=== PATIENT | female | born 1990 | race Caucasian/White ===

== ENCOUNTER → 2016-11-16 21:00 | Emergency (ER) | payer OTHER ==
[~2016-11-16 21:00] MED LIST: ACETAMINOPHEN PO; AMLODIPINE BESY10 MG PO; CATAPRES0.1 MG PO; CELLCEPT500 MG PO; CLONIDINE HCL0.1 MG PO; CYMBALTA PO; ESCITALOPRAM OX10 MG PO; GABAPENTIN300 M2 PO; KEFLEX500 MG PO; KEPPRA500 MG PO; LASIX20 MG PO; LEXAPRO20 MG PO; NICOTINE1 EAC1 TOP; NORVASC10 MG PO; PATIENT'S PHARMACY; PERCOCET5/325 PO; PLAQUENIL200 MG PO; PREDNISOLONE5 MG PO; PREDNISONE PO; PREDNISONE10 MG PO; VITAMIN D1000 UNI1 PO
== END | disposition left against medical advice (07) ==
LOC: CFTX 21:00
DX: R21 Rash and other nonspecific skin eruption (principal)
CPT/HCPCS: 99283

== ENCOUNTER 2017-01-18 19:13 | Emergency (ER) | payer OTHER ==
--- NOTE | ~2017-01-18 | EKG ---
PATIENT: AMADOR BONILLA UNIT #: [id number] Ventricular Rate: 89 BPM Atrial Rate: 89 BPM P-R Interval: 156 ms QRS Duration: 78 ms Q-T Interval: 372 ms QTC Calculation(Bezet): 452 ms P Dawn: 59 degrees Calculated R Dawn: 30 degrees Calculated T Dawn: 35 degrees Diagnosis Line: Normal sinus rhythm Diagnosis Line: Non Specific ST Changes- Abnormality Diagnosis Line: Borderline ECG Diagnosis Line: When compared with ECG of 20-NOV-2014 14:16, Diagnosis Line: Nonspecific T wave abnormality now evident in Diagnosis Line: Lateral leads Diagnosis Line: Confirmed by PARRISH FALCON MD ([id number]) on Diagnosis Line: 01/18/2017 11:01:38 PM INTERPRETING : ALYSSA
[~2017-01-18 19:13] MED LIST changes: -ACETAMINOPHEN PO; -AMLODIPINE BESY10 MG PO; -CATAPRES0.1 MG PO; -CLONIDINE HCL0.1 MG PO; -ESCITALOPRAM OX10 MG PO; -GABAPENTIN300 M2 PO; -KEFLEX500 MG PO; -LASIX20 MG PO; -LEXAPRO20 MG PO; -NICOTINE1 EAC1 TOP; -NORVASC10 MG PO; -PATIENT'S PHARMACY; -PERCOCET5/325 PO; -PREDNISOLONE5 MG PO; -VITAMIN D1000 UNI1 PO
[2017-01-18 20:32] LABS: BASOPHIL% 0.7 % (0-2.5); EOSINOPHIL# 0.2 X10e3 (0-0.7); EOSINOPHIL% 2.5 % (0.0-7.0); HEMATOCRIT 36.9 % (35.0-45.0); HEMOGLOBIN 11.9 gm/dL (12.0-16.0); LYMPHOCYTE# 1.3 X10e3 (1.0-3.5); LYMPHOCYTE% 19.4 % (17.0-45.0); MEAN CELL VOLUME 85.7 FL (83-96); MEAN CORPUSCULAR HEMOGLOBIN 27.7 PG (28-34); MEAN CORPUSCULAR HGB CONC 32.3 g/dL (30-36); MONOCYTE# 0.3 X10e3 (0-1.0); MONOCYTE% 5.2 % (3.0-12.0); NEUTROPHIL# 4.8 X10e3 (1.5-7.1); NEUTROPHIL% 72.2 % (40-75); PLATELET COUNT 302 X10e3 (140-420); RED BLOOD COUNT 4.31 X10e (3.90-5.30); RED CELL DISTRIBUTION WIDTH 14.1 % (11.0-15.5); WHITE BLOOD COUNT 6.7 X10e3 (4.0-10.5)
[2017-01-18 20:42] LABS: DIFF IND NO
[2017-01-18 20:57] LABS: ALBUMIN SERUM 3.9 g/dL (3.5-5.0); ALKALINE PHOSPHATASE 65 U/L (32-92); ALT (SGPT) 23 U/L (10-40); AST (SGOT) 25 U/L (10-42); BILIRUBIN,TOTAL 0.7 mg/dL (0.2-2.0); BLOOD UREA NITROGEN 49 mg/dL (9-23); BUN/CREATININE RATIO 9.24; CARBON DIOXIDE 24 mmol/L (22-31); CHLORIDE 107 mmol/L (100-111); CREATININE SERUM 5.3 mg/dL (0.6-1.4); GLOM FILT RATE Estimated 10.3 mL/min (>60); GLUCOSE FASTING 109 mg/dL (70-110); POTASSIUM 3.4 mmol/L (3.5-5.1); PROTEIN TOTAL SERUM 7.1 g/dL (6.0-8.3); SODIUM 141 mmol/L (135-145)
[2017-01-18 20:58] LABS: ALCOHOL BLOOD <5 mg/dL (0); BILIRUBIN, DIRECT <0.1 mg/dL (0.0-0.2); BILIRUBIN,INDIRECT 0.6 mg/dL (0.0-0.9)
[2017-01-18] MEDS ORDERED: PREDNISONE10 MG PO (22:08)
[2017-01-18] MEDS ORDERED: CELLCEPT500 MG PO (22:08)
[2017-01-18] MEDS ORDERED: ESCITALOPRAM OX10 MG PO (22:09)
[2017-01-18] MEDS ORDERED: GABAPENTIN300 M2 PO (22:09)
[2017-01-18] MEDS ORDERED: CLONIDINE HCL0.1 MG PO (22:09)
[2017-01-18] MEDS ORDERED: AMLODIPINE BESY10 MG PO (22:09)
[2017-01-18 23:28] LABS: AMPHETAMINE POS (NEG); BARBITURATES NEG (NEG); BENZODIAZEPINES NEG (NEG); COCAINE POS (NEG); MARIJUANA POS (NEG); OPIATES NEG (NEG); TRICYCLIC ANTIDEPRESSANTS NEG (NEG); U METHADONE NEG (NEG)
[2017-04-09] MEDS ORDERED: PATIENT'S PHARMACY (11:23)
[2017-04-09] MEDS ORDERED: CATAPRES0.1 MG PO (11:23)
[2017-04-09] MEDS ORDERED: NORVASC10 MG PO (11:23)
[2017-04-09] MEDS ORDERED: NICOTINE1 EAC1 TOP (11:24)
[2017-04-09] MEDS ORDERED: CELLCEPT500 MG PO (11:24)
[2017-04-09] MEDS ORDERED: VITAMIN D1000 UNI1 PO (11:24)
[2017-04-09] MEDS ORDERED: ACETAMINOPHEN PO (13:06)
[2017-04-09] MEDS ORDERED: PREDNISOLONE5 MG PO (13:06)
[2017-04-09] MEDS ORDERED: KEFLEX500 MG PO (13:09)
[2017-04-09] MEDS ORDERED: LEXAPRO20 MG PO (13:14)
[2017-04-10] MEDS ORDERED: PERCOCET5/325 PO (15:32)
== END 2017-01-19 01:16 ==
LOC: CED 19:13
PROVIDERS: Emergency Medicine
DX: F12.10 Cannabis abuse, uncomplicated (principal); F14.10 Cocaine abuse, uncomplicated; F15.10 Other stimulant abuse, uncomplicated; F32.9 Major depressive disorder, single episode, unspecified; I12.9 Hypertensive chronic kidney disease with stage 1 through stage 4 chronic kidney disease, or unspecified chronic kidney disease; N18.9 Chronic kidney disease, unspecified; F17.200 Nicotine dependence, unspecified, uncomplicated; Z88.8 Allergy status to other drugs, medicaments and biological substances
CPT/HCPCS: 36415; 80048; 80076; 80307; 84703; 85025; 93005; 96360; 99285; G0480; J7517

== ENCOUNTER 2017-01-18 22:00 | Inpatient (IN) | payer OTHER ==
--- NOTE | ~2017-01-18 | CO ---
Unit #: [id number] #: [id number] Patient: AMADOR BONILLA [id number] [place] [address] [id number] I MR#: [id number] NAME: AMADOR BONILLA ROOM: P171 Age: 26 Sex: F Admission Date: 01/19/2017 : 1990 Attending Physician: Lencho Damon M.D. Primary Care Physician: [facility] Consultation Date: 01/19/2017 CONSULTATION REPORT KAILASH Dickey is a 26-year-old with history of lupus neuritis and chronic renal insufficiency. At time of admission, lab work showed BUN/creatinine of 49/5.3. Orders were given to transport her to emergency room at [facility] for treatment of her renal insufficiency. There evidently was some resistance and pushed back emergency room staff. The patient ultimately was sent to the emergency room and treated for her renal insufficiency. Labs were repeated and at the time when she was sent back to us BUN/creatinine was 44/4.6. After conferring with Dr. Kearney, we learned that this patient is in fact followed by Dr. Vides and that her baseline creatinine is 5.0 (?). During the remainder of her admission to [facility], she remained hydrated and at time of discharge on 01/21/2017 BUN/creatinine was 40/3.3. Dictated by... Ashley Meneses P.A.-C. for Abhinav Angel/abrahan TD: 01/22/2017 23:18 JOB #: [id number] CONSULTATION REPORT Page 1 of 1 X Ashley Meneses CONSULTATION REPORT
--- NOTE | ~2017-01-18 | DS ---
Unit #: [id number] #: [id number] Patient: AMADOR BONILLA [id number] [facility] [address] [place] [address] [id number] I MR#: [id number] NAME: AMADOR BONILLA ROOM: P171 Age: 26 Sex: F Admission Date: 01/19/2017 : 1990 Discharge Date: 01/21/2017 Attending Physician: Lencho Damon M.D. Primary Care Physician: [facility] DISCHARGE SUMMARY REASON FOR ADMISSION Ms. Bonilla is a 26-year-old woman, complaining of increased helplessness and hopelessness despite compliance with Lexapro. She had been also using methamphetamines and worrying about chronic medical issues including end-stage renal disease and lupus. She was admitted for stabilization. DIAGNOSTIC STUDIES Please see hospital chart. HOSPITAL COURSE The patient was admitted on suicide precautions. Lexapro changed to Zoloft 50 mg daily. The patient was seen at [facility] for a creatinine of 4.6 and they felt that this was chronic given her long-term renal dysfunction. The patient, herself, stated that she felt safe under these conditions. She had no further suicidal ideation, intent, or plan and was discharged in stable condition. DISCHARGE DIAGNOSES [place] I Major depression. Amphetamine abuse. [place] II No diagnosis. [place] III SLE. End-stage kidney disease. [place] IV [place] V INSTRUCTIONS TO PATIENT Follow up with primary care physician and CD/IOP. DISCHARGE MEDICATIONS Zoloft 50 mg daily for depression PRIMARY CARE MEDICINES 1. Norvasc 10 mg daily for hypertension 2. Clonidine 0.1 mg three times a day for hypertension 3. Prednisone 10 mg daily for lupus 4. CellCept 1000 mg daily for lupus CONDITION AT DISCHARGE Fair. Unit #: [id number] #: [id number] Patient: AMADOR BONILLA PROGNOSIS Fair. DIET AND ACTIVITY Per primary care doctor. Dictated by... Lencho Damon M.D. ARIELLE/seth TD: 02/26/2017 07:01 JOB #: [id number] DISCHARGE SUMMARY Page 1 of 1 X Lencho Damon MD X DISCHARGE SUMMARY
--- NOTE | ~2017-01-18 | PN ---
Unit #: [id number] #: [id number] Patient: AMADOR BONILLA [id number] [facility] [address] [place] [address] [id number] I MR#: [id number] NAME: AMADOR BONILLA ROOM: P171 Age: 26 Sex: F Admission Date: 01/19/2017 : 1990 Attending Physician: Lencho Damon M.D. Admitting Physician: Lencho Damon M.D. Primary Care Physician: [facility] PROGRESS NOTES DATE 01/21/2017 DISCUSSION This patient was seen and evaluated on 01/21/2017. She denies any suicidal ideation or homicidal ideation and contracts for safety. She wants discharge today. [facility] She is currently living with her mother. She has come to the hospital for methamphetamine abuse. She is goal oriented and focused on her sobriety. Plan to discharge today. Dictated by... Arlen Esteves/jannie TD: 01/26/2017 21:52 JOB #: [id number] [facility] PROGRESS NOTES Page 1 of 1 X Adrienne Eli PROGRESS NOTE
--- NOTE | ~2017-01-18 | HP ---
Unit #: [id number] #: [id number] Patient: CHRIS BONILLA [id number] [place] [address] [id number] I MR#: [id number] NAME: CHRIS BONILLA ROOM: P181 Age: 26 Sex: F Admission Date: 01/19/2017 : 1990 Attending Physician: Lencho Damon M.D. Admitting Physician: Lencho Damon M.D. Primary Care Physician: [facility] HISTORY AND PHYSICAL HISTORY OF PRESENT ILLNESS Chris is a 26 year old admitted to [facility] because of her drug use. She snorts methamphetamine. PAST MEDICAL HISTORY 1. Long history of illicit substance abuse to include methamphetamine. 2. Lupus nephritis. a. Baseline creatinine is 5.0. She is followed by Dr. Vides. 3. High blood pressure. 4. History of withdrawal seizures. PAST SURGICAL HISTORY Renal biopsy x 2. ALLERGIES No known drug allergies. SOCIAL HISTORY Smokes less than one pack per day. Denies alcohol. Admits to a long history of illicit substance abuse to include methamphetamine. FAMILY HISTORY Medically noncontributory. REVIEW OF SYSTEMS CONSTITUTIONAL: No fever or chills. HEENT: Denies any sore throat, ear pain or runny nose. CARDIOVASCULAR: Denies chest pain, irregular heart rhythm or palpitations. CHEST: Denies shortness of breath or cough. No hemoptysis. GASTROINTESTINAL: Denies nausea, vomiting, diarrhea or chronic constipation. ENDOCRINE: Denies history of increased thirst or urination. No recent significant weight loss or gain. GENITOURINARY: She does report decreased urine output but she says this "typical" for her. SKIN: Denies any rashes. HEMATOLOGIC: Denies history of increased bleeding or bruising. MUSCULOSKELETAL: Denies any hot, swollen joints. No generalized muscle pain. NEUROLOGIC: Denies problems with vision or speech. No frequent, severe headaches. No numbness, tingling or weakness in any extremities. Denies loss of bladder or bowel control. Unit #: [id number] #: [id number] Patient: CHRIS BONILLA CURRENT MEDICATIONS 1. Zoloft 50 mg q day 2. Norvasc 10 mg q day 3. Catapres 0.1 mg t.i.d. 4. Neurontin 300 mg q day 5. Prednisone 10 mg q day 6. Cellcept 1000 mg q day 7. Nicotine patch 7 mg q day 8. Milk of Magnesia p.r.n. 9. Maalox p.r.n. 10. Tylenol p.r.n. PHYSICAL EXAMINATION GENERAL: Alert, very thin, in no apparent distress. VITAL SIGNS: Blood pressure 122/84, heart rate 80, respirations 16, temperature 98.6. WEIGHT: 100 pounds. HEIGHT: 5'2". SKIN: Warm and dry without rash or lesion. HEENT: Normocephalic. TMs not viewed. Oral and nasal passages clear. Conjunctivae clear. Pupils equal, round and reactive to light and accommodation. Extraocular movements intact. NECK: Supple without lymphadenopathy or thyromegaly. HEART: Regular rate and rhythm without murmur. LUNGS: Clear. ABDOMEN: Soft, nontender. : Not done. EXTREMITIES: No evidence of cyanosis, clubbing or edema. Moves all extremities without focal deficit. NEUROLOGICAL: Grossly within normal limits. Cranial Nerves: II: Visual diego are intact. III, IV AND : Extraocular movements are intact. Pupils are equal, round and reactive to light. V: Facial sensation is grossly normal. VII: Facial movements and expression are normal. VIII: Auditory acuity grossly intact. IX, X: Uvula is midline. Phonation is normal. XI: Patient shrugs shoulders and turns head normally. XII: Tongue protrudes in the midline. Sensory and Motor Function: Sensory and motor sensation is grossly normal. Motor: moves all extremities well. Coordination: Gait is normal. Deep Tendon Reflexes: Intact. ADMISSION LABS Bun/creatinine 49/5.3, 44/4.6, 43/4.0. GFR 14.4. H/H 11.6/35.2. IMPRESSION 1. Psychiatric admission 2. Chronic renal insufficiency 3. Lupus nephritis RECOMMENDATIONS PSYCHIATRIC: Per psychiatrist. MEDICAL: 1. I see no contraindications to participating in facility's activities. 2. The patient again is followed by Dr. Vides. MEDICAL PROGNOSIS Unit #: [id number] #: [id number] Patient: CHRIS BONILLA Good. MEDICAL CONDITION Stable. Dictated by... Ashley Meneses P.A.-C. for Abhinav Angel/jannie TD: 01/19/2017 21:59 JOB #: [id number] HISTORY AND PHYSICAL Page 1 of 1 X Ashley Meneses HISTORY AND PHYSICAL
--- NOTE | ~2017-01-18 | PA ---
Unit #: [id number] #: [id number] Patient: CHRIS BONILLA [id number] [place] [address] [id number] I MR#: [id number] NAME: CHRIS BONILLA ROOM: P181 Age: 26 Sex: F Admission Date: 01/19/2017 : 1990 Date of Assessment: Attending Physician: Lencho Damon M.D. Admitting Physician: Lencho Damon M.D. Primary Care Physician: [facility] PSYCHIATRIC ASSESSMENT DATE OF ASSESSMENT 01/19/2017. INFORMANTS The patient reliable; OLOP, reliable. CHIEF COMPLAINT Suicidal ideation. HISTORY OF PRESENT ILLNESS Chris is a 26-year-old woman who presented complaining of increased hopelessness and helplessness. She has been on treatment recently with Lexapro 10 mg daily, but denies any benefits or side effects. She has been using methamphetamines and has multiple serious medical issues including lupus and end-stage renal disease. She was unable to contract for safety and was admitted for stabilization. PAST PSYCHIATRIC HISTORY Previous history of treatment for depression and multiple chemical dependence issues. She has never been admitted to this facility. FAMILY PSYCHIATRIC HISTORY Reviewed without changes. SOCIAL HISTORY The patient is temporarily homeless. She has a history of abuse in the past, but declined any further reporting of this. She is temporarily homeless with erratic psychosocial support. PAST MEDICAL HISTORY Significant for lupus and what she describes as "stage 5" renal disease. MEDICATIONS CellCept, prednisone, and others per current MAR. ALLERGIES No known medication allergies. SUBSTANCE USE HISTORY The patient has been using methamphetamine. MENTAL STATUS EXAMINATION The patient presented as a disheveled woman who appeared older than her Unit #: [id number] #: [id number] Patient: CHRIS BONILLA stated age. She was cooperative with the examination. Her speech was spontaneous and easily understood. Musculoskeletal examination was calm. Her mood was moderately depressed with a congruent affect. She was alert and fully oriented. Her memory and concentration were intact. Her thought processes were logical with no evidence of psychosis, disorientation, or confusion. She reported suicidal ideation, but had no specific plan or intent. Insight and judgment were fair. Fund of knowledge and abstraction, fair. ASSETS AND LIABILITIES The patient presents voluntarily for treatment. Liabilities include chronic medical problems, temporary homelessness. ADMITTING DIAGNOSES AXIS I: Major depression, moderate, F33.1; amphetamine abuse. AXIS II: No diagnosis. AXIS III: Systemic lupus erythematosus, end-stage kidney disease. AXIS IV: AXIS V: PSYCHIATRIC PLAN The patient was admitted and placed on suicide precautions. Her home medications were continued, but Lexapro was changed to Zoloft 50 mg daily. Later that morning, we received her baseline laboratory studies, which indicate significant kidney dysfunction with a creatinine of 4.6 and an eGFR in the range of 12. I contacted her certified medical assistant, who recommended that based on the severity of this disease, she be sent out for clearance at the [facility], which was accomplished. We will await their evaluation before making further therapeutic decisions. ESTIMATED LENGTH OF STAY 5 days. Dictated by... Lencho Damon M.D. ARIELLE/abrahan TD: 01/20/2017 04:08 JOB #: [id number] PSYCHIATRIC ASSESSMENT Page 1 of 1 X Lencho Damon MD X PSYCHIATRIC ASSESSMENT
[2017-01-18] MEDS ORDERED: PREDNISONE10 MG PO (22:08)
[2017-01-18] MEDS ORDERED: CELLCEPT500 MG PO (22:08)
[2017-01-18] MEDS ORDERED: GABAPENTIN300 M2 PO (22:09)
[2017-01-18] MEDS ORDERED: CLONIDINE HCL0.1 MG PO (22:09)
[2017-01-18] MEDS ORDERED: ESCITALOPRAM OX10 MG PO (22:09)
[2017-01-18] MEDS ORDERED: AMLODIPINE BESY10 MG PO (22:09)
[2017-01-19 09:35] LABS: BASOPHIL% 0.2 % (0-2.5); EOSINOPHIL% 0.1 % (0.0-7.0); HEMATOCRIT 35.2 % (35.0-45.0); HEMOGLOBIN 11.6 gm/dL (12.0-16.0); LYMPHOCYTE# 0.6 X10e3 (1.0-3.5); MEAN CELL VOLUME 85.3 FL (83-96); MEAN CORPUSCULAR HGB CONC 32.9 g/dL (30-36); MEAN PLATELET VOLUME 7.5 FL (6.5-11.5); MONOCYTE# 0.1 X10e3 (0-1.0); MONOCYTE% 1.3 % (3.0-12.0); NEUTROPHIL# 5.8 X10e3 (1.5-7.1); NEUTROPHIL% 89.4 % (40-75); PLATELET COUNT 292 X10e3 (140-420); RED BLOOD COUNT 4.13 X10e (3.90-5.30); RED CELL DISTRIBUTION WIDTH 14.5 % (11.0-15.5); WHITE BLOOD COUNT 6.5 X10e3 (4.0-10.5)
[2017-01-19 09:56] LABS: DIFF IND NO
[2017-01-19 10:06] LABS: ALBUMIN SERUM 3.7 g/dL (3.5-5.0); BILIRUBIN,TOTAL 0.9 mg/dL (0.2-2.0); BUN/CREATININE RATIO 9.56; CALCIUM SERUM 8.9 mg/dL (8.4-10.2); CREATININE SERUM 4.6 mg/dL (0.6-1.4); GLOM FILT RATE Estimated 12.2 mL/min (>60); POTASSIUM 4.2 mmol/L (3.5-5.1); PROTEIN TOTAL SERUM 6.4 g/dL (6.0-8.3)
[2017-01-21 10:15] LABS: BUN/CREATININE RATIO 12.12; CALCIUM SERUM 8.6 mg/dL (8.4-10.2); CREATININE SERUM 3.3 mg/dL (0.6-1.4); GLOM FILT RATE Estimated 18.2 mL/min (>60); POTASSIUM 4.2 mmol/L (3.5-5.1)
[2017-04-09] MEDS ORDERED: CATAPRES0.1 MG PO (11:23)
[2017-04-09] MEDS ORDERED: PATIENT'S PHARMACY (11:23)
[2017-04-09] MEDS ORDERED: NORVASC10 MG PO (11:23)
[2017-04-09] MEDS ORDERED: VITAMIN D1000 UNI1 PO (11:24)
[2017-04-09] MEDS ORDERED: NICOTINE1 EAC1 TOP (11:24)
[2017-04-09] MEDS ORDERED: CELLCEPT500 MG PO (11:24)
[2017-04-09] MEDS ORDERED: PREDNISOLONE5 MG PO (13:06)
[2017-04-09] MEDS ORDERED: ACETAMINOPHEN PO (13:06)
[2017-04-09] MEDS ORDERED: KEFLEX500 MG PO (13:09)
[2017-04-09] MEDS ORDERED: LEXAPRO20 MG PO (13:14)
[2017-04-10] MEDS ORDERED: PERCOCET5/325 PO (15:32)
== END 2017-01-21 16:01 | DRG 885 ==
LOC: P1E 01-19 02:08
PROVIDERS: Family Medicine; Psychiatry & Neurology Psychiatry
DX: F33.1 Major depressive disorder, recurrent, moderate (principal); N18.6 End stage renal disease; M32.9 Systemic lupus erythematosus, unspecified; I12.0 Hypertensive chronic kidney disease with stage 5 chronic kidney disease or end stage renal disease; F15.10 Other stimulant abuse, uncomplicated; F17.210 Nicotine dependence, cigarettes, uncomplicated
CPT/HCPCS: 80048; 80053; 85025; J7517

== ENCOUNTER 2017-01-19 13:15 | Emergency (ER) | payer OTHER ==
[~2017-01-19 13:15] MED LIST changes: +AMLODIPINE BESY10 MG PO; +CLONIDINE HCL0.1 MG PO; +ESCITALOPRAM OX10 MG PO; +GABAPENTIN300 M2 PO
[2017-01-19 15:25] LABS: URINE SOURCE CLEAN CATCH
[2017-01-19 15:38] LABS: URINE APPEARANCE CLOUDY; URINE BILIRUBIN NEG (NEG); URINE BLOOD 1+ (NEG); URINE COLOR YELLOW; URINE GLUCOSE 100 MG/DL (NEG); URINE KETONE NEG (NEG); URINE LEUKOCYTE ESTERASE 2+ (NEG); URINE NITRATE NEG (NEG); URINE PROTEIN 2+ (NEG); URINE UROBILINOGEN 0.2 MG/DL (NEG)
[2017-01-19 15:41] LABS: CULTURE INDICATED? YES; URINE BACTERIA AUWI NEG (NEGATIVE); URINE SQUAMOUS EPITHELIAL CELL MOD /[HPF]; UWBCS1 AUWI 25-50 (0-5)
[2017-01-19 15:51] LABS: BUN/CREATININE RATIO 10.75; CALCIUM SERUM 8.4 mg/dL (8.4-10.2); GLOM FILT RATE Estimated 14.4 mL/min (>60); POTASSIUM 3.9 mmol/L (3.5-5.1)
[2017-04-09] MEDS ORDERED: PATIENT'S PHARMACY (11:23)
[2017-04-09] MEDS ORDERED: NORVASC10 MG PO (11:23)
[2017-04-09] MEDS ORDERED: CATAPRES0.1 MG PO (11:23)
[2017-04-09] MEDS ORDERED: NICOTINE1 EAC1 TOP (11:24)
[2017-04-09] MEDS ORDERED: VITAMIN D1000 UNI1 PO (11:24)
[2017-04-09] MEDS ORDERED: CELLCEPT500 MG PO (11:24)
[2017-04-09] MEDS ORDERED: ACETAMINOPHEN PO (13:06)
[2017-04-09] MEDS ORDERED: PREDNISOLONE5 MG PO (13:06)
[2017-04-09] MEDS ORDERED: KEFLEX500 MG PO (13:09)
[2017-04-09] MEDS ORDERED: LEXAPRO20 MG PO (13:14)
[2017-04-10] MEDS ORDERED: PERCOCET5/325 PO (15:32)
== END 2017-01-19 18:15 ==
LOC: CED 13:15
PROVIDERS: Emergency Medicine
DX: N39.0 Urinary tract infection, site not specified (principal); N18.9 Chronic kidney disease, unspecified; Z79.899 Other long term (current) drug therapy
CPT/HCPCS: 36415; 80048; 81003; 82550; 84703; 87086; 96361; 96374; 99285; J0696

== ENCOUNTER 2017-02-13 21:12 | Emergency (ER) | payer OTHER ==
[2017-02-13 22:57] LABS: URINE SOURCE CLEAN CATCH
[2017-02-13 23:01] LABS: URINE APPEARANCE CLOUDY; URINE BILIRUBIN NEG (NEG); URINE BLOOD 1+ (NEG); URINE COLOR YELLOW; URINE GLUCOSE NEG (NEG); URINE KETONE NEG (NEG); URINE LEUKOCYTE ESTERASE 3+ (NEG); URINE NITRATE NEG (NEG); URINE PROTEIN 2+ (NEG); URINE SPECIFIC GRAVITY 1.011 (1.003-1.035); URINE UROBILINOGEN 0.2 MG/DL (NEG)
[2017-02-13 23:04] LABS: CULTURE INDICATED? YES; U HYALINE CASTS AUWI 0-2 /[LPF]; URINE BACTERIA AUWI NEG (NEGATIVE); URINE SQUAMOUS EPITHELIAL CELL MOD /[HPF]; UWBCS1 AUWI 100-200 (0-5)
[2017-02-13 23:45] LABS: BASOPHIL% 0.4 % (0-2.5); EOSINOPHIL# 0.1 X10e3 (0-0.7); EOSINOPHIL% 3.1 % (0.0-7.0); HEMATOCRIT 34.3 % (35.0-45.0); MEAN CELL VOLUME 87.3 FL (83-96); MEAN CORPUSCULAR HGB CONC 32.1 g/dL (30-36); MEAN PLATELET VOLUME 6.7 FL (6.5-11.5); MONOCYTE# 0.2 X10e3 (0-1.0); MONOCYTE% 6.3 % (3.0-12.0); NEUTROPHIL# 2.4 X10e3 (1.5-7.1); NEUTROPHIL% 63.2 % (40-75); PLATELET COUNT 251 X10e3 (140-420); RED BLOOD COUNT 3.93 X10e (3.90-5.30); RED CELL DISTRIBUTION WIDTH 14.6 % (11.0-15.5); WHITE BLOOD COUNT 3.9 X10e3 (4.0-10.5)
[2017-02-13 23:46] LABS: DIFF IND NO
[2017-02-14 00:06] LABS: ALBUMIN SERUM 3.5 g/dL (3.5-5.0); BILIRUBIN, DIRECT 0.1 mg/dL (0.0-0.2); BILIRUBIN,INDIRECT 0.7 mg/dL (0.0-0.9); BILIRUBIN,TOTAL 0.8 mg/dL (0.2-2.0); BUN/CREATININE RATIO 6.42; CALCIUM SERUM 8.3 mg/dL (8.4-10.2); CREATININE SERUM 4.2 mg/dL (0.6-1.4); GLOM FILT RATE Estimated 13.6 mL/min (>60); POTASSIUM 4.1 mmol/L (3.5-5.1); PROTEIN TOTAL SERUM 6.6 g/dL (6.0-8.3)
[2017-04-09] MEDS ORDERED: NORVASC10 MG PO (11:23)
[2017-04-09] MEDS ORDERED: CATAPRES0.1 MG PO (11:23)
[2017-04-09] MEDS ORDERED: PATIENT'S PHARMACY (11:23)
[2017-04-09] MEDS ORDERED: CELLCEPT500 MG PO (11:24)
[2017-04-09] MEDS ORDERED: VITAMIN D1000 UNI1 PO (11:24)
[2017-04-09] MEDS ORDERED: NICOTINE1 EAC1 TOP (11:24)
[2017-04-09] MEDS ORDERED: ACETAMINOPHEN PO (13:06)
[2017-04-09] MEDS ORDERED: PREDNISOLONE5 MG PO (13:06)
[2017-04-09] MEDS ORDERED: KEFLEX500 MG PO (13:09)
[2017-04-09] MEDS ORDERED: LEXAPRO20 MG PO (13:14)
[2017-04-10] MEDS ORDERED: PERCOCET5/325 PO (15:32)
== END 2017-02-14 00:57 | disposition home or self-care (01) ==
LOC: CED 21:12
PROVIDERS: Emergency Medicine
DX: N39.0 Urinary tract infection, site not specified (principal); I12.9 Hypertensive chronic kidney disease with stage 1 through stage 4 chronic kidney disease, or unspecified chronic kidney disease; N18.4 Chronic kidney disease, stage 4 (severe); F17.210 Nicotine dependence, cigarettes, uncomplicated; Z79.899 Other long term (current) drug therapy
CPT/HCPCS: 36415; 80048; 80076; 81003; 83690; 84703; 85025; 87086; 96361; 96365; 99284; J0696

== ENCOUNTER 2017-03-25 11:18 | Emergency (ER) | payer OTHER ==
[~2017-03-25] VITALS: Ht 160 cm; Wt 47.6 kg
[2017-03-25 13:51] LABS: BASOPHIL% 0.4 % (0-2.5); EOSINOPHIL# 0.3 X10e3 (0-0.7); EOSINOPHIL% 2.4 % (0.0-7.0); HEMATOCRIT 36.4 % (35.0-45.0); HEMOGLOBIN 11.8 gm/dL (12.0-16.0); LYMPHOCYTE# 1.6 X10e3 (1.0-3.5); LYMPHOCYTE% 14.3 % (17.0-45.0); MEAN CELL VOLUME 88.5 FL (83-96); MEAN CORPUSCULAR HEMOGLOBIN 28.7 PG (28-34); MEAN CORPUSCULAR HGB CONC 32.5 g/dL (30-36); MEAN PLATELET VOLUME 6.9 FL (6.5-11.5); MONOCYTE# 0.6 X10e3 (0-1.0); MONOCYTE% 5.4 % (3.0-12.0); NEUTROPHIL# 8.5 X10e3 (1.5-7.1); NEUTROPHIL% 77.5 % (40-75); PLATELET COUNT 321 X10e3 (140-420); RED BLOOD COUNT 4.12 X10e (3.90-5.30); RED CELL DISTRIBUTION WIDTH 15.7 % (11.0-15.5); WHITE BLOOD COUNT 10.9 X10e3 (4.0-10.5)
[2017-03-25 13:56] LABS: DIFF IND NO
[2017-03-25 14:07] LABS: ALBUMIN SERUM 4.4 g/dL (3.5-5.0); BILIRUBIN, DIRECT 0.1 mg/dL (0.0-0.2); BILIRUBIN,INDIRECT 0.7 mg/dL (0.0-0.9); BILIRUBIN,TOTAL 0.8 mg/dL (0.2-2.0); BUN/CREATININE RATIO 16.34; CALCIUM SERUM 9.5 mg/dL (8.4-10.2); CREATININE SERUM 4.1 mg/dL (0.6-1.4); PROTEIN TOTAL SERUM 8.2 g/dL (6.0-8.3)
[2017-04-09] MEDS ORDERED: NORVASC10 MG PO (11:23)
[2017-04-09] MEDS ORDERED: CATAPRES0.1 MG PO (11:23)
[2017-04-09] MEDS ORDERED: PATIENT'S PHARMACY (11:23)
[2017-04-09] MEDS ORDERED: VITAMIN D1000 UNI1 PO (11:24)
[2017-04-09] MEDS ORDERED: CELLCEPT500 MG PO (11:24)
[2017-04-09] MEDS ORDERED: NICOTINE1 EAC1 TOP (11:24)
[2017-04-09] MEDS ORDERED: ACETAMINOPHEN PO (13:06)
[2017-04-09] MEDS ORDERED: PREDNISOLONE5 MG PO (13:06)
[2017-04-09] MEDS ORDERED: KEFLEX500 MG PO (13:09)
[2017-04-09] MEDS ORDERED: LEXAPRO20 MG PO (13:14)
[2017-04-10] MEDS ORDERED: PERCOCET5/325 PO (15:32)
== END 2017-03-25 15:15 | disposition home or self-care (01) ==
LOC: CED 11:18
PROVIDERS: Emergency Medicine
DX: L03.116 Cellulitis of left lower limb (principal); L03.115 Cellulitis of right lower limb; F17.200 Nicotine dependence, unspecified, uncomplicated; L93.0 Discoid lupus erythematosus
CPT/HCPCS: 36415; 80048; 80076; 82550; 85025; 99283; J2270; J2405

== ENCOUNTER 2017-03-30 07:10 | Observation (INO) | payer OTHER ==
[~2017-03-30] VITALS: Ht 160 cm; Wt 47.6 kg
--- NOTE | ~2017-03-30 | CO ---
Unit #: [id number] #: [id number] Patient: AMADOR BONILLA [id number] [facility]. [place], [place] [address] [id number] MR#: [id number] NAME: AMADOR BONILLA ROOM: 472 Age: 26 Sex: F Admission Date: 03/30/2017 : 1990 Attending Physician: Ulysses Larson M.D. Primary Care Physician: [facility]. CONSULTATION REPORT REASON FOR CONSULT Right ankle pain, erythema and swelling. CHIEF COMPLAINT Right ankle pain. HISTORY OF PRESENT ILLNESS This is a 26-year-old female who was admitted to [facility] for chronic kidney disease and lupus flare-up. Patient has a history of polysubstance abuse including cocaine, methamphetamines, opioids and marijuana. She reports onset of three to four days ago of right ankle pain. Denies any trauma or injury. She is a poor history about the timing of the onset and the setting. She denies any IV drug abuse or injecting of her ankle. Upon arrival, she was found to have worsening azotemia from her normal levels. She has been treated at [facility] in the past for lupus flare-ups and for her renal failure as recently as earlier this month. REVIEW OF SYSTEMS Full 12-point review of systems was attempted but due to the patient's mental status, the only pertinent positives were chronic kidney disease, drug abuse, ankle pain and itching. Otherwise, negative. PHYSICAL EXAMINATION On exam, she is in no acute distress. She is drowsy, unlabored breathing. She is alert and somewhat converses. On examination of the right lower extremity, she has scattered excoriations, none that are currently open or draining. She also has multiple red bumps that she states are not itchy. She is unaware of the cause but appear they could be bug bites or could be related to her lupus. She has minimal swelling to the right ankle. No effusion is present. She is able to dorsiflex and plantar flex her ankle without any tenderness. She does have some tenderness to palpation superficially over the medial aspect of the ankle with some mild erythema but no wounds or fluctuance there. No pain with passive stretch of any of the toe tendons. Sensation is intact to light touch throughout and she has brisk capillary refill in her toes. Examination of the left lower extremity is very similar with scattered excoriations, even more mild erythema of the medial aspect of the ankle with some of those same red bumps. Again, no fluctuance or effusion is present. She is able to dorsiflex and plantar flex her foot without any issue. Sensation is intact to light touch throughout with brisk capillary Unit #: [id number] #: [id number] Patient: AMADOR BONILLA refzbigniew. DIAGNOSTIC STUDIES IMAGING: Imaging was reviewed, three views of the right ankle, which were normal for any fracture or dislocation. No significant findings on these x-rays. ASSESSMENT 26-year-old female with history of polysubstance abuse with right ankle pain and mild erythema, also with a history of polysubstance abuse and lupus. PLAN It appears she has some superficial cellulitis that could also be related to a lupus. At this time, there is very low concern or suspicion for septic arthritis and we do not feel that an aspiration or any surgical intervention is warranted. She is already on antibiotics per her primary team and this is all that we would recommend at this time. She is weight bearing as tolerated on bilateral lower extremities and we will continue to follow her while she is in the hospital to make sure that this superficial infection does not spread to the ankle joint itself. Thank you for the consult and please call with any questions. Dictated by... Charlie Perez M.D. for Briana Mcfarlane M.D. ATG/df TD: 04/01/2017 06:49 JOB #: [id number] CONSULTATION REPORT Page 1 of 1 X X CONSULTATION REPORT
--- NOTE | ~2017-03-30 | US146 ---
[facility] A Service of [facility] RADIOLOGY TEXT RESULTS PATIENT: AMADOR BONILLA LOCATION: [facility] [id number] : [birth year] UNIT #: [id number] AGE: [address]: Ulysses Larson MD SEX: F ORDER DR: [id number] [facility] [address]. [place], [place] [address] [id number] I MR#: [id number] Acc #: [id number] NAME: AMADOR BONILLA : 1990 SEX: F STUDY DATE/TIME: 03/31/2017 12:52 UNIT: [facility] ROOM: [facility] STUDY DESCRIPTION: US Vein Map Hemodial Access Attending Physician: Ulysses Larson M.D. Ordering Physician: Amaury Thapa Jr., M.D. MEDICAL IMAGING REPORT This report is preliminary unless electronic signature is present EXAM Bilateral upper extremity vein map 03/31/2017 HISTORY Chronic kidney disease. Dialysis access evaluation. FINDINGS High-resolution B-mode imaging was performed of the cephalic and basilic veins bilaterally. All veins are fully compressible with no intraluminal thrombus. The right cephalic vein is too small at all levels to be considered as a fistula. The right basilic vein measures 6.7 mm in the proximal upper arm, 7.3 mm in the mid-upper arm, 4.6 mm in the distal upper arm, 6.8 mm at the elbow, 6.0 mm in the proximal forearm, 2.7 mm in the mid-forearm, and 1.7 mm in the distal forearm. The left cephalic vein measures 2.7 mm in the proximal upper arm, 2.1 mm in the mid-upper arm, 1.3 mm in the distal upper arm, and 2.3 mm at the elbow. The left cephalic vein is too small in the forearm to be seen. The left basilic vein measures 5.0 mm in the proximal upper arm, 3.2 mm in the mid-upper arm, 1.9 mm in the distal upper arm, and 2.1 mm at the elbow. It is too small to be seen in the left forearm. IMPRESSION Normal right basilic vein which appears to be adequate for use as a fistula above the elbow. The right cephalic vein is too small to be used as a fistula at any level. The left cephalic and basilic veins are small and probably inadequate for use as a fistula. [facility] A Service of [facility] RADIOLOGY TEXT RESULTS PATIENT: AMADOR BONILLA LOCATION: [place] [address] : [birth year] UNIT #: [id number] AGE: [address]: Ulysses Larson MD SEX: F ORDER DR: Dictated by... Amaury Wilkins M.D. THIS IS AN ELECTRONICALLY VERIFIED REPORT Amaury Wilkins M.D. at 04/01/2017 7:31 AM SBS/pcl TD: 03/31/2017 23:29 JOB #: [id number] MEDICAL IMAGING REPORT Page 1 of 1 COPY
--- NOTE | ~2017-03-30 | CO ---
Unit #: [id number] #: [id number] Patient: AMADOR BONILLA [id number] [place], [place] [address] [id number] I MR#: [id number] NAME: AMADOR BONILLA ROOM: 472 Age: 26 Sex: F Admission Date: 03/30/2017 : 1990 Attending Physician: Ulysses Larson M.D. Primary Care Physician: [facility] Consultation Date: 04/01/2017 CONSULTATION REPORT REASON FOR CONSULTATION Followup. DISCUSSION Ms. Perez is a 26-year-old female, seen in room 472, bed 1 on 04/01/2017. The patient reports mood is getting better, decrease in anxiety and depression. Compliant with medication. No side effects from medication. The patient denied any psychotic symptom or any suicidal ideation. The patient is tolerating medication fairly well. Currently, on Lexapro, Remeron, and Vistaril. The patient also has a history of amphetamine abuse. The patient's vital signs; temperature 98.8, pulse 93, respirations 16, blood pressure 150/94, and oxygen saturation 100%. MENTAL STATUS EXAMINATION General appearance, the patient dressed casually, lying comfortably in bed, somewhat anxious. Attention span and concentration, fair. Speech, regular rate. Oriented in time, place, and person. Mood and affect, sad and dysphoric. Thought process, coherent. Thought content, the patient denied any thoughts of harming self or others or any psychotic symptom. Recent and remote memory, fair. Language, intact. Fund of knowledge, fair to slightly impaired. DIAGNOSES Psychiatric: Major depressive disorder, recurrent, severe, F33.2; posttraumatic stress disorder, chronic, F43.12; amphetamine use disorder, severe, F15.20. ASSESSMENT/PLAN 1. Supportive psychotherapy and psychoeducation provided to the patient. 2. Educated about benefits and side effects of medication and course and prognosis of illness. 3. Advised to continue with current combination of medication and make further adjustment of medication if needed. Dictated by... Abhinav Roque/abrahan TD: 04/01/2017 22:54 JOB #: [id number] Unit #: [id number] #: [id number] Patient: DARELL BONILLAMARIE CONSULTATION REPORT Page 1 of 1 X Mario Goetz MD CONSULTATION REPORT
--- NOTE | ~2017-03-30 | CO ---
Unit #: [id number] #: [id number] Patient: AMADOR BONILLA [id number] [address] [address] [id number] I MR#: [id number] NAME: AMADOR BONILLA ROOM: 472 Age: 26 Sex: F Admission Date: 03/30/2017 : 1990 Attending Physician: Ulysses Larson M.D. Primary Care Physician: [facility]. Consultation Date: 03/31/2017 CONSULTATION REPORT REASON FOR CONSULTATION Depression, PTSD, history of amphetamine abuse. HISTORY OF PRESENT ILLNESS Ms. Perez is a 26-year-old female seen on 03/31/17 in room 462 bed-1 at [facility]. Patient dressed casually, lying comfortably in bed. Patient reported feeling sad, depressed, anxious. Has a history of PTSD, depression, history of amphetamine abuse. The patient reports taking Lexapro but still having problem with falling asleep, staying asleep, anxiety. Denied any suicidal or homicidal ideation. Denied any psychotic symptom. Patient was admitted on 03/30/17 for lupus flare-up. The patient has a history of chronic kidney disease. PAST PSYCHIATRIC HISTORY Remarkable for history of depression, PTSD, history of amphetamine abuse, history of previous admission at [facility]. MEDICAL HISTORY AND MEDICATION HISTORY 1. History of chronic kidney disease. 2. History of seizure. 3. Lupus. 4. History of hepatitis C. 5. Hypertension. ALLERGIES No known drug allergies. MEDICATION Patient is on: 1. Norvasc. 2. Catapres. 3. Lexapro 20 mg daily. 4. CellCept. 5. Vitamin D. 6. Lasix 40 mg daily. FAMILY HISTORY/SOCIAL HISTORY Patient reports that she has a good support system. No history of abuse. History of substance abuse as mentioned above. REVIEW OF SYSTEMS Complete review of systems remarkable. MENTAL STATUS EXAMINATION Unit #: [id number] #: [id number] Patient: AMADOR BONILLA VITAL SIGNS: 97.9, 88, 20, 127/74. Oxygen saturation 99%. GENERAL APPEARANCE: Patient dress casually, lying comfortably in bed. Attention span and concentration fair. Speech - regular rate, coherent. Oriented in time, place and person. Mood and affect sad, dysphoric. Thought process coherent. Thought content - patient denied any thoughts of harming self or others nor any hallucination. Recent and remote memory fair. Language intact. Fund of knowledge fair. Insight and judgment fair to slightly impaired. DIAGNOSIS PSYCHIATRIC: 1. Major depressive disorder, recurrent, severe - F33.0. 2. Post-traumatic stress disorder, chronic - F43.12. 3. Amphetamine use disorder, severe - F15.20. ASSESSMENT/PLAN 1. Supportive psychotherapy and psychoeducation provided to patient. 2. Educated about benefits and side effects of medication and course and prognosis of illness. 3. Advised to continue with Lexapro and add Remeron 15 mg at bedtime. Also advised Vistaril 25 mg three times daily for anxiety. We will continue to follow. Please feel free to call if any questions. Telephone number [phone]. Dictated by... Mario Goetz M.D. EMLISSA/domingo TD: 04/01/2017 08:14 JOB #: [id number] CONSULTATION REPORT Page 1 of 1 X Mario Goetz MD X CONSULTATION REPORT
--- NOTE | ~2017-03-30 | CO ---
Unit #: [id number] #: [id number] Patient: AMADOR BONILLA [id number] [address] [address] [id number] I MR#: [id number] NAME: AMADOR BONILLA ROOM: 472 Age: 26 Sex: F Admission Date: 03/30/2017 : 1990 Attending Physician: Ulysses Larson M.D. Primary Care Physician: [facility]. Consultation Date: 03/30/2017 CONSULTATION REPORT NEPHROLOGY CONSULTATION REASON FOR CONSULT Acute on chronic kidney disease with a history of lupus nephritis. HISTORY OF PRESENT ILLNESS Ms. Bonilla is a 26-year-old female with a history of lupus nephritis with resultant renal insufficiency who presented to the hospital with complaints of right ankle pain and Ortho has been asked to see the patient. The patient is a very poor historian and is very agitated and confused and under the influence of drugs at this time. Therefore, she is not a good historian. Records would indicate that she just got out of [facility] on March 27. During that time, it looks like her creatinine improved from a level greater than 5 down to 3.5 at the time of discharge. It looks like they basically gave her IV fluids during that admission. She denies any GI distress. No gross hematuria. She does have some scabs on her skin, mostly on her arms. No fevers or chills. PAST MEDICAL HISTORY Significant for: 1. Chronic kidney disease stage 4. 2. Lupus nephritis. 3. Hypertension. 4. Polysubstance abuse. 5. Hepatitis C. 6. Seizure disorder. 7. Tobacco abuse. PAST SURGICAL HISTORY 1. Kidney biopsy x2. 2. She has had a previous dialysis catheter. MEDICATIONS Her discharge medicines from [facility] included: 1. CellCept 1000 mg twice a day. 2. Cipro 250 mg every 12 hours. 3. Clonidine 0.1 mg three times a day. 4. Lexapro 10 mg a day. 5. Norvasc 10 mg a day. 6. Prednisone 60 mg a day. 7. Vitamin D daily. ALLERGIES She has no known drug allergies. Unit #: [id number] #: [id number] Patient: AMADOR BONILLA FAMILY HISTORY Not known as she is confused. Previous admission she denied any significant family history. SOCIAL HISTORY Patient has a history of polysubstance abuse and is multi-drug positive on her urine screen today. She also smokes. REVIEW OF SYSTEMS A complete 12-point review of systems was attempted but made very difficult due to her agitation and confusion. She has not complained of a headache. No bleeding, no sore throat or earache, no chest pain or palpitations, no cough or hemoptysis, no bright red blood per rectum, no swelling. She has had some pruritus with her rash. No flank pain, no chills, no night sweats or hot flashes, o intolerance to heat or cold. No known bleeding issues. Unless otherwise indicated, the review of systems was negative. PHYSICAL EXAMINATION VITAL SIGNS: Patient is afebrile. Pulse 152, respiratory rate 18, blood pressure 122/82, has been as high as 190/143. GENERAL: This is a 26-year-old female, confused, agitated at this time. HEENT: Head is atraumatic, normocephalic. Eyes show pink conjunctivae but no scleral icterus. No nasal drainage or nose bleed. Oropharynx is without thrush. NECK: No JVD. HEART: Tachycardic and regular with gallop or rub appreciated. LUNGS: Clear. No wheezing or rhonchi. Breathing is nonlabored. ABDOMEN: Soft, nontender. Bowel sounds are present. EXTREMITIES: No lower extremity cyanosis or edema. SKIN: Dry with multiple scabs on her skin, looks like from scratching. MUSCULOSKELETAL EXAM: Right ankle tenderness was noted. No CVA tenderness to palpation. NEUROLOGICAL EXAM: Patient appears somewhat confused. She is moving all four extremities. DIAGNOSTIC STUDIES LABORATORY: Sed rate today was 27. Urine drug screen was positive for benzos, amphetamines, marijuana and opiates. Urinalysis was nitrite negative with 2+ protein and 2-5 red blood cells. Chemistry this morning - sodium 140, potassium was 3.9, chloride 103, bicarb 24, glucose 103, BUN 68, creatinine up to 4.3. AST and ALT high at 50 and 79 respectively. Albumin of 4. CBC showed a white count of 111, hemoglobin of 111 and platelet count 294. CK was 39. Review of old labs here shows a creatinine of 4.1 on March 25 and 4.2 on February 13. Going back to January of this year, her creatinine ran anywhere between 3.3 and 5.3. Her creatinine is certainly steadily higher since June 2014 creatinine of 2.2. ASSESSMENT AND PLAN Unit #: [id number] #: [id number] Patient: AMADOR BONILLA 1. Acute on chronic kidney disease stage 4. Her acute kidney injury is likely multifactorial with probable noncompliance with her drug use and possible some degree of dehydration. She did get better with fluids at [facility] and we will continue IV fluids here that were started in the emergency room. Her chronic kidney disease is stage 4 and progressive, likely from lupus and noncompliance with blood pressure medication. 2. Lupus nephritis. We will continue her CellCept and prednisone that she was discharged on from [facility]. 3. Hypertension. Her home meds have been renewed and I will add some p.r.n. clonidine as well. 4. Polysubstance abuse, currently confused. 5. Right ankle pain. Ortho has been asked to see and I will check a uric acid level with the morning labs. 6. Hepatitis C with elevated liver function tests. 7. Seizure disorder. 8. Overall prognosis is certainly poor considering her kidney issues and continued drug use. I would like to thank Dr. Padilla for this consult and the opportunity to participate in the evaluation and care of Ms. Bonilla. Dictated by... Amaury Thapa Jr. MAdela. SANDRA/domingo TD: 03/31/2017 08:36 JOB #: [id number] CONSULTATION REPORT Page 1 of 1 X Amaury Thapa MD X CONSULTATION REPORT
--- NOTE | ~2017-03-30 | A ---
[facility] DATE: 03/31/17 Patient: AMADOR BONILLA Physician: HARI Address: [address] [place] [address] Room/Bed: [address] [place] [address], Zip: [place] [address] Admit Date: 03/30/17 Date of : [birth year] Height: 5 3 Weight: 105 47.62 NUTRITIONAL ASSESSMENT: REASON: LOW BMI PT IS 26 Y.O. FEMALE ADMITTED FOR ANKLE PAIN, ALBERTA PMH: POLYSUBSTANCE ABUSE, LUPUS NEPHRITIS, CKD STAGE 4, HTN, HEPATITIS C, SEIZURE DISORDER Anthropometrics: 5'3", WT: 105# (47.7 KG), BMI: 18.6, 91%IBW Labs: GLU: 142, BUN: 65, CREAT: 4.0, ALT: 66, PHOS: 6.0, GFR: 14.4 Meds: THERAPEUTIC FORMULA, NACL, PREDNISONE, VITAMIN D, PHENERGAN, ZOFRAN, THIAMINE, FOLIC ACID I/O & Bowel function: 1102/1752 Skin Integrity: SCATTERED LESIONS ON FACE; SCABS LOCATED BILATERAL ARMS; DRY SKIN ALL OVER BODY Assessment: CHART REVIEWED AND EVENTS NOTED. PT SEEN FOR LOW BMI (UNDERWEIGHT STATUS). PT EXTREMELY SLEEPY & LETHARGIC AT TIME OF VISIT REPORING FAIR/GOOD PO INTAKE, NOTING NO C/O N/V/D. PT ADDS SHE USUALLY HAS "GOOD" PO INTAKE AND APPETITE. PT DENIES ANY RECENT WEIGHT LOSS. PER CHART, PT WAS AT [facility] FROM 03/26/17-03/27/17 FOR ACUTE ON CHRONIC KIDNEY DISEASE. THIS RD ENCOURAGED ADEQUATE PO INTAKE, PT AGREED TO NEPRO SHAKE DAILY W/LUNCH MEAL. PER MD NOTES, POOR PROGNOSIS NOTED. PT NOT APPROPRIATE FOR DIET EDUCATION AT THIS TIME. RD TO FOLLOW. SEE RECOMMENDATIONS BELOW. Dx: 1. UNDERWEIGHT R/T LIFESTYLE, PMH AEB BMI OF 18.6. 2. ALTERED NUTRIENT UTILIZATION R/T CURRENT CLINICAL CONDITION, PMH AEB NEED FOR THERAPEUTIC DIET ORDER. Intervention: 1. RENAL DIET 2. NEPRO SHAKE W/LUNCH DAILY Monitoring, Evaluation and Goals: 1. ORAL INTAKE; CONSUME/TOLERATE >50% OF MEALS AND SUPPLEMENTS 2. WEIGHTS; PROMOTE GRADUAL WEIGHT GAIN TOWARDS HEALTHY BMI; PREVENT WEIGHT LOSS 3. LABS; WNL: BUN, CREAT, GLU, LYTES 4. SKIN; PROMOTE SKIN HEALING Recommendations: [facility] DATE: 03/31/17 Patient: AMADOR BONILLA Physician: HARI Address: [address] [place] [address] Room/Bed: [address] [place] [address], Zip: [place] [address] Admit Date: 03/30/17 Date of : [birth year] Height: 5 3 Weight: 105 47.62 1. PLEASE ORDER BUTTER PECAN NEPRO SHAKE W/LUNCH MEAL DAILY 2. APPRECIATE FAMILY AND STAFF TO ENCOURAGE ADEQUATE PO INTAKE 3. CONSIDER ADDING MVI W/MINERAL DAILY RD WILL F/U PER PROTOCOL PT IS MILDLY COMPROMISED Respectfully, NICKY WHITE MS, RD, LD [facility] cc: client file
--- NOTE | ~2017-03-30 | CO ---
Unit #: [id number] #: [id number] Patient: CHRIS BONILLA [id number] [address] [place], [place] [address] [id number] I MR#: [id number] NAME: CHRIS BONILLA ROOM: 472 Age: 26 Sex: F Admission Date: 03/30/2017 : 1990 Attending Physician: Ulysses Larson M.D. Primary Care Physician: [facility]. Consultation Date: 03/31/2017 CONSULTATION REPORT REFERRING PROVIDER Dr. Marietta Padilla, also Dr. Amaury Thapa REASON FOR CONSULTATION Chronic renal insufficiency requiring dialysis in the future. HISTORY Patient is a 26-year-old female with a history of lupus nephritis with chronic kidney disease who was admitted to the hospital through the emergency room because of right ankle pain. While in the emergency room, she was found to be very agitated and was under the influence of medications and drugs. She is a poor historian and outside records show that she was at [facility] on March 27 and at that time she was found to have similar complaints of dehydration and chronic renal insufficiency with an acute phase. She was given fluids and was then discharged home. She returns with the same complaints at [facility]. She was treated with IV medications for sedation as well as IV fluids. She is now much better. In her room today, she appears much less agitated and is conversant. She reports no pain other than some slight ankle pain which she considers to be a part of her lupus. She reports no blood in her urine. she still makes urine. She is tolerating her diet. She does report using illicit medications and drugs but does not use needles, according to her. Vein mapping was done today in the hospital and we were asked to see her for possible options for dialysis. PAST MEDICAL HISTORY 1. Chronic kidney disease. 2. Lupus. 3. Hypertension. 4. Hepatitis C. 5. Tobacco abuse. 6. Seizure disorder. PAST SURGICAL HISTORY 1. Kidney biopsy. 2. Previous dialysis catheter placement. MEDICATIONS 1. CellCept 1000 mg twice daily. 2. Cipro 250 mg every 12 hours. 3. Clonidine 0.1 mg three times daily. 4. Lexapro 10 mg daily. 5. Norvasc 10 mg daily. 6. Prednisone 60 mg daily. Unit #: [id number] #: [id number] Patient: CHRIS BONILLA ALLERGIES None. FAMILY HISTORY Noncontributory. SOCIAL HISTORY Positive for polysubstance and multi-drug abuse. Positive for tobacco abuse. REVIEW OF SYSTEMS Per the HPI. The remainder of 14-point review of systems is negative per questioning. PHYSICAL EXAMINATION VITAL SIGNS: BP 127/74, pulse 88, respirations 20, temperature 98. GENERAL APPEARANCE: The patient is a well groomed, well developed individual appearing her stated age, in no distress, answering questions appropriately. HEENT: Pupils equal, reactive to light and accommodation. Extraocular movements are intact. Mucous membranes are moist. No intraoral or intramucosal lesions or infection. NECK: Supple. No JVD, no carotid bruits bilateral. Trachea is midline. Thyroid is midline. No thyroid enlargement. HEART: S1, S2. Regular rate and rhythm. No murmurs. LUNGS: Clear to auscultation bilaterally. Good air entry throughout. No wheezing or crackles. ABDOMEN: Soft, nontender, nondistended. Positive bowel sounds. No abdominal masses or hernias are noted. VASCULAR: Positive radial, brachial, femoral, and pedal pulses bilateral. SKIN: Small scratch wounds on the arms and legs bilateral but no deep seated wounds. No other dermatologic changes noted. MUSCULOSKELETAL: No soft tissue masses or bony deformities. No limb length or limb circumference abnormalities bilaterally. LYMPHATICS: No lymphadenopathy of the cervical or femoral chain. PSYCHIATRIC: Alert and oriented x3. NEUROLOGIC: Cranial nerves II through XII are intact. 5 out of 5 strength in all extremities. Normal sensation in all extremities. DIAGNOSTIC STUDIES IMAGING: Patient had bilateral upper extremity venous mapping performed on March 31, 2017, reviewed by me personally showing good right basilic vein for creation of a fistula but the right and left cephalic veins as well as left basilic vein are not adequate for use. IMPRESSION/PLAN Ms. Chris Bonilla, a 26-year-old female with lupus nephritis and chronic kidney disease with stage 4 chronic disease. Ms. Bonilla was told, based on vein mapping, she is a good candidate for a right brachial basilic fistula. We will protect her right arm with no IVs, blood pressures or blood draws. We recommended she stop using illicit medications and definite not to use needles. I will discuss with Dr. Thapa the timing of the fistula. She has an IV currently in place in the right basilic vein which may need to be removed and allowed her vein to rest before we do the access placement. Ms. Bonilla had the remainder of her questions answered to her satisfaction and she appears Unit #: [id number] #: [id number] Patient: CHRIS BONILLA agreeable with the plan. Thank you for having us see Ms. Bonilla, if you have any questions do not hesitate to contact me. Dictated by... Charles Davis M.D. ANDREINA/domingo TD: 04/01/2017 08:45 JOB #: [id number] CONSULTATION REPORT Page 1 of 1 X Charles Davis MD X CONSULTATION REPORT
--- NOTE | ~2017-03-30 | CR18 ---
[facility] A Service of [facility] & [facility] RADIOLOGY TEXT RESULTS PATIENT: AMADOR BONILLA LOCATION: [place] [address]- : [birth year] UNIT #: [id number] AGE: [address]: Ulysses Larson MD SEX: F ORDER DR: [id number] [facility] [address]. [place], [place] [address] [id number] I MR#: [id number] Acc #: [id number] NAME: AMADOR BONILLA : 1990 SEX: F STUDY DATE/TIME: 03/30/2017 11:05 UNIT: [facility] ROOM: [facility] STUDY DESCRIPTION: CR Ankle 2 Views Rt Attending Physician: Marietta Padilla M.D. Ordering Physician: Dread Lugo M.D. Primary Care Physician: [facility]. MEDICAL IMAGING REPORT This report is preliminary unless electronic signature is present EXAM Right ankle series, 03/30/2017 HISTORY Redness all over. Symptoms began today. FINDINGS AP and lateral radiographs of the ankle presented. No fracture or malalignment. Ankle mortise joint intact. No soft tissue defect, subcutaneous air or radiodense foreign body. There appears to be soft tissue swelling anterior aspect of the ankle. Correlate with exam. Dictated by... Paddy Mcknight M.D. THIS IS AN ELECTRONICALLY VERIFIED REPORT Paddy Mcknight M.D. at 04/01/2017 2:47 PM Jenny TD: 03/30/2017 15:15 JOB #: [id number] MEDICAL IMAGING REPORT Page 1 of 1 COPY
--- NOTE | ~2017-03-30 | CR72 ---
[facility] A Service of [facility] & [facility] RADIOLOGY TEXT RESULTS PATIENT: AMADOR BONILLA LOCATION: [place] [address] : [birth year] UNIT #: [id number] AGE: [address]: Marietta Padilla MD SEX: F ORDER DR: [id number] [facility] [address]. [place], [place] [address] [id number] I MR#: [id number] Acc #: [id number] NAME: AMADOR BONILLA : 1990 SEX: F STUDY DATE/TIME: 03/30/2017 8:58 UNIT: [facility] ROOM: 22729 STUDY DESCRIPTION: CR Chest Single View Portable Attending Physician: Marietta Padilla M.D. Ordering Physician: Dread Lugo M.D. Primary Care Physician: [facility]. MEDICAL IMAGING REPORT This report is preliminary unless electronic signature is present EXAM Portable chest 03/30/2017 HISTORY Heart palpitations beginning last night, lupus flair up, benign essential hypertension, stage IV kidney failure. Smoking history. FINDINGS A single AP portable view of the chest shows both lungs to be clear. The heart is normal in size. The mediastinal contour is normal. No significant bone abnormalities are seen. IMPRESSION Normal portable chest. Dictated by... Tino Keene M.D. THIS IS AN ELECTRONICALLY VERIFIED REPORT Tino Keene M.D. at 03/31/2017 7:27 AM KRT/domingo TD: 03/30/2017 12:51 JOB #: [id number] MEDICAL IMAGING REPORT Page 1 of 1 COPY
--- NOTE | ~2017-03-30 | HP ---
Unit #: [id number] #: [id number] Patient: AMADOR BONILLA [id number] [facility]. [place], [place] [address] [id number] MR#: [id number] NAME: AMADOR BONILLA ROOM: Age: 26 Sex: F Admission Date: 03/30/2017 : 1990 Attending Physician: Dread Lugo M.D. Primary Care Physician: [facility]. HISTORY AND PHYSICAL CHIEF COMPLAINT Lupus flare-up. HISTORY OF PRESENT ILLNESS The patient is a 26-year-old female with past medical history of chronic kidney disease, lupus, hepatitis C, hypertension, polysubstance abuse who presented to the emergency department for evaluation of the above. History is obtained from chart review and discussion with ER staff. The patient is currently not providing any history. She is not answering any questions. She is not fully cooperative with exam. Apparently on presentation she was quite agitated. She received 1 mg of Ativan, as well as ketamine. The patient was complaining of right ankle pain of unknown duration. It is unclear if there is a history of trauma. It is unclear if she was injecting in this area. Right ankle x-ray is pending. Urine tox screen is positive for benzodiazepines, amphetamine, marijuana and opiates. White blood cell count is 11.3. Also of note, BUN and creatinine are 68 and 4.3 respectively. The patient also received 1 liter of normal saline, as well as a gram of Rocephin in the emergency department. She is being admitted to [facility] for evaluation and further treatment. PAST MEDICAL HISTORY 1. Admission to [facility] March 26 through March 27, 2017 for acute on chronic kidney disease. Per records from [facility], the patient's last known baseline was around 2 (two years ago). Again, per the records from [facility], the patient's creatinine was 3.5 on the day of discharge. 2. Admission to [facility] July 08, 2014 for seizure. She was discharged home with a prescription for Keppra, which she was advised to take if she had another seizure. Again, the patient is not answering questions at the time of my evaluation. Keppra is not listed as a home medication. 3. Lupus, maintained on CellCept. Per records from [facility], the patient was diagnosed in 2001, previously followed by [facility] rheumatology. 4. Chronic kidney disease secondary to lupus nephritis. She apparently had temporary hemodialysis and was previously followed by [facility] nephrology but has not seen them for several years. 5. History of hepatitis C. 6. Hypertension. 7. Depression. PAST SURGICAL HISTORY Unit #: [id number] #: [id number] Patient: AMADOR BONILLA 1. Kidney biopsy. 2. Dialysis catheter. SOCIAL HISTORY The patient lives with her mom. She has a history of polysubstance abuse, including methamphetamine, marijuana. There is not a history of alcohol abuse per record review. The patient also has a history of cocaine abuse with tox screen being positive for cocaine here at [facility] on January 18, 2017. FAMILY HISTORY Notable for hypertension. ALLERGIES No known allergies. HOME MEDICATIONS 1. Norvasc 5 mg daily. 2. Catapres 0.1 mg t.i.d. 3. Lexapro 20 mg daily. 4. CellCept 1,000 mg b.i.d. 5. Vitamin D 1,000 units daily. 6. Lasix 40 mg daily. REVIEW OF SYSTEMS A complete review of systems is unobtainable from the patient due to lack of cooperation, but negative except as indicated in the HPI. PHYSICAL EXAMINATION VITAL SIGNS: Temperature is 98.3, pulse in the 140s, respirations 18, blood pressure 122/82, oxygen saturation 100% on room air. GENERAL: The patient is a female who is awake and alert. HEENT: The patient has scattered excoriated lesions on the face. Mucous membranes are moist. NECK: Supple. Trachea is midline. CARDIOVASCULAR: Tachycardic in the 130s. RESPIRATORY: Lungs are clear to auscultation bilaterally with no increased work of breathing. ABDOMEN: Soft, nontender with bowel sounds present in all 4 quadrants. EXTREMITIES: Extremities show scattered excoriations. The right ankle is somewhat erythematous and warm. Exam was somewhat limited due to lack of cooperation. PSYCHIATRIC: The patient is anxious and actively picking at multiple excoriated areas. NEUROLOGIC: The patient is awake and alert. She, per my discussion with the ER staff, was oriented x3. She is currently not answering my questions and not following commands. DIAGNOSTIC TESTS IMAGING: Chest x-ray shows no acute abnormality. Right ankle x-ray is pending. LABORATORY: Comprehensive metabolic panel notable for BUN and creatinine of 68 and 4.3 respectively. AST and ALT are 50 and 79 respectively. Complete blood count notable for white blood cell count of 11.3, hemoglobin 11.1. Urinalysis notable for trace leukocyte esterase, 2+ protein, 5-10 white blood cells. Urine tox screen is positive for Unit #: [id number] #: [id number] Patient: AMADOR BONILLA benzodiazepine, amphetamine, marijuana and opiate. ASSESSMENT 1. The patient is a 26-year-old female with right ankle pain concerning for possible septic arthritis versus lupus flare. The patient received vancomycin in the emergency department. 2. Acute on chronic kidney disease. The patient's creatinine is 4.3 today. Per [facility] records, creatinine was 3.5 earlier this month. She did have a baseline of 2 two years ago. Per records from [facility], the patient's creatinine was 4 in January of 2017. It has been as high as 5.3 on January 18, 2017. 3. Polysubstance abuse with current tox screen positive for amphetamine, benzodiazepine, marijuana and opiates. 4. Normocytic anemia. The patient's hemoglobin was 11.8 on March 25, 2017. It is 11.1 today. 5. Transaminitis secondary to hepatitis C. 6. Hepatitis C. 7. Systemic lupus erythematosus, maintained on CellCept. 8. Hypertension. 9. Depression. 10. Tobacco abuse. PLAN 1. Admit for observation to intermediate level. 2. Normal saline at 125 mL an hour. 3. Blood cultures x2. 4. Vancomycin IV pending further workup. 5. Consult Dr. Mcfarlane regarding right ankle pain and concern for possible septic arthritis. 6. Strict I's and O's. 7. Renal diet. 8. Check CPK. 9. Consult Dr. Vides regarding acute on chronic kidney disease. 10. EKG, if not done, for further evaluation of tachycardia. 11. Opiate withdrawal protocol. 12. Tylenol p.r.n. 13. Neuro checks. 14. Repeat labs in the morning. 15. Consult Dr. Goetz regarding polysubstance abuse. 16. Additional workup and consultants based on above. Dictated by Abhinav Conley TD: 03/30/2017 12:22 JOB #: [id number] Unit #: [id number] #: [id number] Patient: AMADOR BONILLA HISTORY AND PHYSICAL Page 1 of 1 X Marietta Padilla MD X HISTORY AND PHYSICAL
--- NOTE | ~2017-03-30 | DS ---
Unit #: [id number] #: [id number] Patient: AMADOR BONILLA [id number] [facility]. [place], [place] [address] [id number] I MR#: [id number] NAME: AMADOR BONILLA ROOM: 472 Age: 26 Sex: F Admission Date: 03/30/2017 : 1990 Discharge Date: 04/01/2017 Attending Physician: Ulysses Larson M.D. Primary Care Physician: [facility]. DISCHARGE SUMMARY DISCHARGE DIAGNOSES 1. Cellulitis of the right ankle. 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 4. Drug-induced encephalopathy. 5. Cnwed-eu-dlvbzgj kidney disease. HOSPITAL COURSE The patient is a 26-year-old female with systemic lupus, on CellCept. She presented to [facility] secondary to right ankle pain. It was initially unclear whether this was a septic arthritis or a lupus flair. The patient was noted to have worsening of her chronic kidney disease/lupus nephritis as well. Admitting creatinine was 4.3 as compared to baseline of 3.5. The patient was noted to have tox screen positive for amphetamines, benzodiazepines, marijuana and opiates. The patient was admitted and consultation was placed to nephrology for her lupus nephritis and orthopedics for the possibility of septic arthritis. The patient was seen by orthopedics, who thought that she most likely had cellulitis rather than a septic joint. She was continued on antibiotics. Nephrology initiated oral steroids for her nephritis and lupus flair. Creatinine is down to 3.9 from 4.3. The patient was also seen in consultation by vascular surgery. Given her lupus nephritis, she was likely to need dialysis and discussion was had with the patient about AV fistula placement. Discussion revealed that the plan is for outpatient placement and this will be scheduled prior to discharge. The patient was initially combative and then somnolent upon admission. This was most likely secondary to drugs of abuse and medications for her agitation given in the emergency department. Her mental status is cleared and she is now at baseline. Given the above, the patient is being discharged home with outpatient followup. DISCHARGE MEDICATIONS 1. Nicotine patch 14 mg transdermally daily. 2. Norvasc 5 mg daily. 3. Catapres 0.1 mg p.o. t.i.d. 4. CellCept 1000 mg p.o. b.i.d. 5. Prednisone 10 mg p.o. daily. Unit #: [id number] #: [id number] Patient: AMADOR BONILLA 6. Keflex 500 mg p.o. daily. 7. Lexapro 20 mg daily. 8. Tylenol 650 mg p.o. q.6 h. p.r.n. mild pain or fever. FOLLOWUP 1. As mentioned above, the patient should follow up outpatient with nephrology. 2. She should see Dr. John Vides within the next one to two weeks. Dictated by... Abhinav Mackey/timmy TD: 04/01/2017 12:23 JOB #: [id number] DISCHARGE SUMMARY Page 1 of 1 X Ulysses Larson MD X DISCHARGE SUMMARY
--- NOTE | ~2017-03-30 | EKG ---
PATIENT: AMADOR BONILLA UNIT #: [id number] Ventricular Rate: 135 BPM Atrial Rate: 135 BPM P-R Interval: 142 ms QRS Duration: 66 ms Q-T Interval: 292 ms QTC Calculation(Bezet): 438 ms P [place]: 53 degrees Calculated R [place]: 28 degrees Calculated T [place]: 27 degrees Diagnosis Line: Sinus tachycardia Diagnosis Line: Possible Left atrial enlargement Diagnosis Line: Borderline ECG Diagnosis Line: When compared with ECG of 18-JAN-2017 20:33, Diagnosis Line: Vent. rate has increased BY 46 BPM Diagnosis Line: Nonspecific T wave abnormality no longer evident Diagnosis Line: in Lateral leads Diagnosis Line: Confirmed by PARRISH FALCON MD ([id number]) on Diagnosis Line: 03/30/2017 3:30:13 PM INTERPRETING MD: ALYSSA
[2017-03-30 08:00] LABS: BASOPHIL# 0.1 X10e3 (0-0.3); BASOPHIL% 0.5 % (0-2.5); EOSINOPHIL# 0.4 X10e3 (0-0.7); EOSINOPHIL% 3.2 % (0.0-7.0); HEMATOCRIT 33.3 % (35.0-45.0); HEMOGLOBIN 11.1 gm/dL (12.0-16.0); LYMPHOCYTE# 1.9 X10e3 (1.0-3.5); LYMPHOCYTE% 16.9 % (17.0-45.0); MEAN CELL VOLUME 87.6 FL (83-96); MEAN CORPUSCULAR HEMOGLOBIN 29.2 PG (28-34); MEAN CORPUSCULAR HGB CONC 33.4 g/dL (30-36); MEAN PLATELET VOLUME 6.4 FL (6.5-11.5); MONOCYTE# 0.6 X10e3 (0-1.0); MONOCYTE% 4.9 % (3.0-12.0); NEUTROPHIL# 8.4 X10e3 (1.5-7.1); NEUTROPHIL% 74.5 % (40-75); PLATELET COUNT 294 X10e3 (140-420); RED CELL DISTRIBUTION WIDTH 15.2 % (11.0-15.5); WHITE BLOOD COUNT 11.3 X10e3 (4.0-10.5)
[2017-03-30 08:01] LABS: DIFF IND NO
[2017-03-30 08:32] LABS: ALKALINE PHOSPHATASE 84 U/L (32-92); ALT (SGPT) 79 U/L (10-40); AST (SGOT) 50 U/L (10-42); BILIRUBIN,TOTAL 0.5 mg/dL (0.2-2.0); BLOOD UREA NITROGEN 68 mg/dL (9-23); BUN/CREATININE RATIO 15.81; CARBON DIOXIDE 24 mmol/L (22-31); CHLORIDE 103 mmol/L (100-111); CREATININE SERUM 4.3 mg/dL (0.6-1.4); GLOM FILT RATE Estimated 13.2 mL/min (>60); GLUCOSE FASTING 103 mg/dL (70-110); POTASSIUM 3.9 mmol/L (3.5-5.1); PROTEIN TOTAL SERUM 7.5 g/dL (6.0-8.3); SODIUM 140 mmol/L (135-145)
[2017-03-30 08:40] LABS: URINE SOURCE CLEAN CATCH
[2017-03-30 08:44] LABS: BILIRUBIN, DIRECT <0.1 mg/dL (0.0-0.2); BILIRUBIN,INDIRECT 0.4 mg/dL (0.0-0.9)
[2017-03-30 08:58] LABS: URINE APPEARANCE CLEAR; URINE BILIRUBIN NEG (NEG); URINE BLOOD TRACE (NEG); URINE COLOR YELLOW; URINE GLUCOSE NEG (NEG); URINE KETONE NEG (NEG); URINE LEUKOCYTE ESTERASE TRACE (NEG); URINE NITRATE NEG (NEG); URINE PROTEIN 2+ (NEG); URINE SPECIFIC GRAVITY 1.009 (1.003-1.035); URINE UROBILINOGEN 0.2 MG/DL (NEG)
[2017-03-30 09:01] LABS: CULTURE INDICATED? YES; URINE BACTERIA AUWI NEG (NEGATIVE); URINE SQUAMOUS EPITHELIAL CELL OCC /[HPF]
[2017-03-30 09:24] LABS: AMPHETAMINE POS (NEG); BARBITURATES NEG (NEG); BENZODIAZEPINES POS (NEG); COCAINE NEG (NEG); MARIJUANA POS (NEG); OPIATES POS (NEG); TRICYCLIC ANTIDEPRESSANTS NEG (NEG); U METHADONE NEG (NEG)
[2017-03-30] MEDS ORDERED: LEXAPRO20 MG PO (11:23)
[2017-03-30] MEDS ORDERED: LASIX20 MG PO (11:24)
[2017-03-31 03:15] LABS: HEMATOCRIT 30.9 % (35.0-45.0); HEMOGLOBIN 10.3 gm/dL (12.0-16.0); MEAN CELL VOLUME 87.8 FL (83-96); MEAN CORPUSCULAR HEMOGLOBIN 29.2 PG (28-34); MEAN CORPUSCULAR HGB CONC 33.2 g/dL (30-36); MEAN PLATELET VOLUME 6.7 FL (6.5-11.5); RED BLOOD COUNT 3.52 X10e (3.90-5.30); RED CELL DISTRIBUTION WIDTH 15.4 % (11.0-15.5); WHITE BLOOD COUNT 7.2 X10e3 (4.0-10.5)
[2017-03-31 03:41] LABS: ALBUMIN SERUM 3.6 g/dL (3.5-5.0); BILIRUBIN,TOTAL 1.1 mg/dL (0.2-2.0); BUN/CREATININE RATIO 16.25; CALCIUM SERUM 8.8 mg/dL (8.4-10.2); GLOM FILT RATE Estimated 14.4 mL/min (>60); POTASSIUM 4.7 mmol/L (3.5-5.1)
[2017-03-31 03:51] LABS: URIC ACID 8.7 mg/dL (2.6-7.2)
[2017-04-01 05:12] LABS: BASOPHIL% 0.2 % (0-2.5); HEMATOCRIT 27.5 % (35.0-45.0); LYMPHOCYTE# 0.6 X10e3 (1.0-3.5); LYMPHOCYTE% 3.9 % (17.0-45.0); MEAN CELL VOLUME 87.5 FL (83-96); MEAN CORPUSCULAR HEMOGLOBIN 28.7 PG (28-34); MEAN CORPUSCULAR HGB CONC 32.8 g/dL (30-36); MEAN PLATELET VOLUME 6.4 FL (6.5-11.5); MONOCYTE# 0.5 X10e3 (0-1.0); NEUTROPHIL# 15.4 X10e3 (1.5-7.1); NEUTROPHIL% 92.9 % (40-75); PLATELET COUNT 250 X10e3 (140-420); RED BLOOD COUNT 3.14 X10e (3.90-5.30); RED CELL DISTRIBUTION WIDTH 15.1 % (11.0-15.5)
[2017-04-01 05:13] LABS: DIFF IND YES; WHITE BLOOD COUNT 16.5 X10e3 (4.0-10.5)
[2017-04-01 05:55] LABS: ANISOCYTOSIS SL; PLATELET ESTIMATE NORMAL (NORMAL)
[2017-04-01 06:47] LABS: BUN/CREATININE RATIO 19.23; CALCIUM SERUM 8.7 mg/dL (8.4-10.2); CREATININE SERUM 3.9 mg/dL (0.6-1.4); GLOM FILT RATE Estimated 14.9 mL/min (>60); POTASSIUM 4.2 mmol/L (3.5-5.1)
[2017-04-06 11:15] LABS: HA AB IGM (HEPPAN) Nonreactive (()); HB CORE AB IGM (HEPPAN) Nonreactive (Nonreactive); HB S AG (HEPPAN) Nonreactive (Nonreactive); HEP C AB (HEPPAN) Reactive (Nonreactive)
[2017-04-09] MEDS ORDERED: CATAPRES0.1 MG PO (11:23)
[2017-04-09] MEDS ORDERED: PATIENT'S PHARMACY (11:23)
[2017-04-09] MEDS ORDERED: NORVASC10 MG PO (11:23)
[2017-04-09] MEDS ORDERED: NICOTINE1 EAC1 TOP (11:24)
[2017-04-09] MEDS ORDERED: VITAMIN D1000 UNI1 PO (11:24)
[2017-04-09] MEDS ORDERED: CELLCEPT500 MG PO (11:24)
[2017-04-09] MEDS ORDERED: ACETAMINOPHEN PO (13:06)
[2017-04-09] MEDS ORDERED: PREDNISOLONE5 MG PO (13:06)
[2017-04-09] MEDS ORDERED: KEFLEX500 MG PO (13:09)
[2017-04-09] MEDS ORDERED: LEXAPRO20 MG PO (13:14)
[2017-04-10] MEDS ORDERED: PERCOCET5/325 PO (15:32)
== END 2017-04-01 13:30 | disposition home or self-care (01) ==
LOC: CED 07:10 → C4C 11:55 → CED 11:55 → CEDOF 11:55 → CED 12:21 → C4C 13:38 → CEDOF 13:38 → C4C 03-31 07:47
PROVIDERS: Emergency Medicine; Family Medicine; Internal Medicine; Internal Medicine Nephrology
DX: L03.115 Cellulitis of right lower limb (principal); M32.14 Glomerular disease in systemic lupus erythematosus; F19.10 Other psychoactive substance abuse, uncomplicated; G92 Toxic encephalopathy; N17.9 Acute kidney failure, unspecified; I12.9 Hypertensive chronic kidney disease with stage 1 through stage 4 chronic kidney disease, or unspecified chronic kidney disease; N18.4 Chronic kidney disease, stage 4 (severe); G40.909 Epilepsy, unspecified, not intractable, without status epilepticus; R79.89 Other specified abnormal findings of blood chemistry; M25.571 Pain in right ankle and joints of right foot; D64.9 Anemia, unspecified; M32.9 Systemic lupus erythematosus, unspecified; F32.9 Major depressive disorder, single episode, unspecified; F17.200 Nicotine dependence, unspecified, uncomplicated; Z79.899 Other long term (current) drug therapy; Z86.19 Personal history of other infectious and parasitic diseases
CPT/HCPCS: 36415; 71010; 73600; 80048; 80053; 80074; 80076; 80202; 80307; 81003; 82550; 84100; 84550; 84703; 85025; 85027; 85652; 87040; 87086; 87522; 93005; 96372; 96374; 96375; 96376; 99285; G0365; G0378; J0690; J2060; J3370; J7517

== ENCOUNTER 2017-04-16 13:12 | Emergency (ER) | payer OTHER ==
[~2017-04-16] VITALS: Ht 157.5 cm; Wt 45.4 kg
--- NOTE | ~2017-04-16 | EKG ---
PATIENT: AMADOR BONILLA UNIT #: [id number] Ventricular Rate: 135 BPM Atrial Rate: 135 BPM P-R Interval: 138 ms QRS Duration: 72 ms Q-T Interval: 282 ms QTC Calculation(Bezet): 423 ms P [place]: 70 degrees Calculated R [place]: 61 degrees Diagnosis Line: Sinus tachycardia Diagnosis Line: Left atrial enlargement Diagnosis Line: Septal infarct , age undetermined Diagnosis Line: Abnormal ECG Diagnosis Line: When compared with ECG of 30-MAR-2017 08:08, Diagnosis Line: No significant change was found Diagnosis Line: Confirmed by NIMA KOO MD ([id number]) on 04/19/2017 Diagnosis Line: 1:50:10 PM INTERPRETING MD: HANANE HECK
--- NOTE | ~2017-04-16 | CR72 ---
[facility] A Service of [facility] RADIOLOGY TEXT RESULTS PATIENT: AMADOR BONILLA LOCATION: [facility] : [birth year] UNIT #: [id number] AGE: [address]: Harjinder Joshi MD SEX: F ORDER DR: [id number] [facility]. [place], [place] [address] [id number] E MR#: [id number] Acc #: [id number] NAME: AMADOR BONILLA : 1990 SEX: F STUDY DATE/TIME: 04/16/2017 14:00 UNIT: [facility] ROOM: STUDY DESCRIPTION: CR Chest Single View Portable Attending Physician: Harjinder Joshi M.D. Ordering Physician: Harjinder Joshi M.D. Primary Care Physician: [facility] MEDICAL IMAGING REPORT This report is preliminary unless electronic signature is present EXAM AP portable chest DATE 04/16/2017 at 1400 HISTORY 26-year-old female with rapid heart rate, shortness breath, postop palpitations. Symptoms present for 1 day. Kidney failure on dialysis. COMPARISON AP portable chest 03/30/2017 FINDINGS A single AP portable view of the chest shows both lungs to be clear. The heart is normal in size. The mediastinal contour is normal. No significant bone abnormalities are seen. IMPRESSION Normal portable chest. Dictated by... Bebe Dodd M.D. THIS IS AN ELECTRONICALLY VERIFIED REPORT Bebe Dodd M.D. at 04/22/2017 8:37 AM [facility]/vignesh TD: 04/16/2017 20:22 JOB #: [id number] MEDICAL IMAGING REPORT [facility] A Service of [facility] / [facility] RADIOLOGY TEXT RESULTS PATIENT: AMADOR BONILLA LOCATION: [facility] : [birth year] UNIT #: [id number] AGE: [address]: Harjinder Joshi MD SEX: F ORDER DR: Page 1 of 1 COPY
[~2017-04-16 13:12] MED LIST changes: +ACETAMINOPHEN PO; +CATAPRES0.1 MG PO; +KEFLEX500 MG PO; +LASIX20 MG PO; +LEXAPRO20 MG PO; +NICOTINE1 EAC1 TOP; +NORVASC10 MG PO; +PATIENT'S PHARMACY; +PERCOCET5/325 PO; +PREDNISOLONE5 MG PO; +VITAMIN D1000 UNI1 PO
[2017-04-16 14:48] LABS: POC - CKMB 1.8 ng/mL (0.0-7.9); POC - TROPONIN <0.05 ng/mL (<=0.05)
[2017-04-16 14:49] LABS: BASOPHIL# 0.1 X10e3 (0-0.3); BASOPHIL% 0.4 % (0-2.5); EOSINOPHIL# 0.1 X10e3 (0-0.7); EOSINOPHIL% 0.6 % (0.0-7.0); HEMATOCRIT 30.3 % (35.0-45.0); HEMOGLOBIN 10.1 gm/dL (12.0-16.0); LYMPHOCYTE# 1.8 X10e3 (1.0-3.5); LYMPHOCYTE% 11.2 % (17.0-45.0); MEAN CELL VOLUME 86.8 FL (83-96); MEAN CORPUSCULAR HEMOGLOBIN 29.1 PG (28-34); MEAN CORPUSCULAR HGB CONC 33.5 g/dL (30-36); MEAN PLATELET VOLUME 6.4 FL (6.5-11.5); MONOCYTE# 1.2 X10e3 (0-1.0); MONOCYTE% 7.8 % (3.0-12.0); NEUTROPHIL# 12.7 X10e3 (1.5-7.1); PLATELET COUNT 250 X10e3 (140-420); RED BLOOD COUNT 3.49 X10e (3.90-5.30); RED CELL DISTRIBUTION WIDTH 14.9 % (11.0-15.5); WHITE BLOOD COUNT 15.8 X10e3 (4.0-10.5)
[2017-04-16 14:50] LABS: DIFF IND YES
[2017-04-16 14:56] LABS: INR 0.9; PARTIAL THROMBOPLASTIN TIME 24.7 SECONDS (23.5-31.3); PROTHROMBIN TIME (PATIENT) 10.1 SECONDS (10.0-11.7)
[2017-04-16 15:13] LABS: PLATELET ESTIMATE NORMAL (NORMAL)
[2017-04-16 15:13] LABS: ALBUMIN SERUM 3.9 g/dL (3.5-5.0); BILIRUBIN, DIRECT 0.2 mg/dL (0.0-0.2); BILIRUBIN,INDIRECT 0.3 mg/dL (0.0-0.9); BILIRUBIN,TOTAL 0.5 mg/dL (0.2-2.0); BUN/CREATININE RATIO 16.74; CALCIUM SERUM 8.8 mg/dL (8.4-10.2); CREATININE SERUM 4.3 mg/dL (0.6-1.4); GLOM FILT RATE Estimated 13.2 mL/min (>60); MAGNESIUM 2.3 mg/dL (1.6-3.0); PHOSPHOROUS 3.9 mg/dL (2.5-4.6); PROTEIN TOTAL SERUM 6.9 g/dL (6.0-8.3)
== END 2017-04-16 16:10 | disposition home or self-care (01) ==
LOC: CED 13:12
PROVIDERS: Emergency Medicine
DX: F15.10 Other stimulant abuse, uncomplicated (principal); G89.18 Other acute postprocedural pain; E87.6 Hypokalemia; I12.0 Hypertensive chronic kidney disease with stage 5 chronic kidney disease or end stage renal disease; N18.6 End stage renal disease; M32.9 Systemic lupus erythematosus, unspecified; Z98.890 Other specified postprocedural states; F17.200 Nicotine dependence, unspecified, uncomplicated
CPT/HCPCS: 36415; 71010; 80048; 80076; 82553; 83605; 83690; 83735; 84100; 84484; 85025; 85610; 85730; 87040; 93005; 96361; 96374; 96375; 99284; J2060; J3490

== ENCOUNTER 2017-04-18 03:10 | Emergency (ER) | payer OTHER ==
[~2017-04-18] VITALS: Ht 152.4 cm; Wt 45.4 kg
--- NOTE | ~2017-04-18 | EKG ---
PATIENT: AMADOR BONILLA UNIT #: [id number] Ventricular Rate: 154 BPM Atrial Rate: 154 BPM P-R Interval: 128 ms QRS Duration: 64 ms Q-T Interval: 262 ms QTC Calculation(Bezet): 419 ms P [place]: 59 degrees Calculated R [place]: 26 degrees Calculated T [place]: 4 degrees Diagnosis Line: Sinus tachycardia Diagnosis Line: Nonspecific ST abnormality Diagnosis Line: Abnormal ECG Baseline wander Diagnosis Line: When compared with ECG of 16-APR-2017 13:46, Diagnosis Line: (unconfirmed) Diagnosis Line: Criteria for Septal infarct are no longer Present Diagnosis Line: Confirmed by NIMA KOO MD ([id number]) on 04/19/2017 Diagnosis Line: 2:01:14 PM INTERPRETING MD: HANANE HECK
--- NOTE | ~2017-04-18 | CR72 ---
[facility] A Service of [facility] RADIOLOGY TEXT RESULTS PATIENT: AMADOR BONILLA LOCATION: [facility] : [birth year] UNIT #: [id number] AGE: [address]: Sukumar Kaur MD SEX: F ORDER DR: [id number] [facility] [address] [facility]. [place], [place] [address] [id number] E MR#: [id number] Acc #: [id number] NAME: AMADOR BONILLA : 1990 SEX: F STUDY DATE/TIME: 04/18/2017 4:00 UNIT: [facility] ROOM: STUDY DESCRIPTION: CR Chest Single View Portable Attending Physician: Sukumar Kaur M.D. Ordering Physician: Sukumar Kaur M.D. Primary Care Physician: [facility]. MEDICAL IMAGING REPORT This report is preliminary unless electronic signature is present EXAM Portable chest INDICATIONS Shortness of air and chest pain today. PROCEDURE Frontal view chest COMPARISON 04/16/2017 FINDINGS Heart size within normal limits. No dense consolidation. There is a 1.4 cm nodule projecting over the right mid lung, not seen on the previous study. May be overlying or represent nipple shadow. No visible pleural fluid or pneumothorax. IMPRESSION 1. No acute findings 2. A 1.4 cm nodular density in the right mid lung is not seen on the previous study from 04/16/2017. This may be overlying represent a nipple shadow. Recommend attention on future studies. Dictated by... Ki Good M.D. THIS IS AN ELECTRONICALLY VERIFIED REPORT Ki Good M.D. at 04/19/2017 10:04 PM EED/cristine TD: 04/18/2017 14:18 [facility] A Service [facility] RADIOLOGY TEXT RESULTS PATIENT: AMADOR BONILLA LOCATION: [facility] : [birth year] UNIT #: [id number] AGE: [address]: Sukumar Kaur MD SEX: F ORDER DR: SUKH #: [id number] MEDICAL IMAGING REPORT Page 1 of 1 COPY
[2017-04-18 04:17] LABS: BASOPHIL# 0.1 X10e3 (0-0.3); BASOPHIL% 0.4 % (0-2.5); HEMATOCRIT 29.2 % (35.0-45.0); HEMOGLOBIN 9.6 gm/dL (12.0-16.0); LYMPHOCYTE# 1.2 X10e3 (1.0-3.5); LYMPHOCYTE% 6.2 % (17.0-45.0); MEAN CELL VOLUME 86.9 FL (83-96); MEAN CORPUSCULAR HEMOGLOBIN 28.5 PG (28-34); MEAN CORPUSCULAR HGB CONC 32.8 g/dL (30-36); MEAN PLATELET VOLUME 6.2 FL (6.5-11.5); MONOCYTE% 5.3 % (3.0-12.0); NEUTROPHIL# 17.4 X10e3 (1.5-7.1); NEUTROPHIL% 88.1 % (40-75); PLATELET COUNT 246 X10e3 (140-420); RED BLOOD COUNT 3.36 X10e (3.90-5.30); WHITE BLOOD COUNT 19.7 X10e3 (4.0-10.5)
[2017-04-18 04:18] LABS: DIFF IND YES
[2017-04-18 04:28] LABS: PARTIAL THROMBOPLASTIN TIME 24.5 SECONDS (23.5-31.3); PROTHROMBIN TIME (PATIENT) 10.5 SECONDS (10.0-11.7)
[2017-04-18 04:30] LABS: POC - CKMB 2.7 ng/mL (0.0-7.9); POC - TROPONIN <0.05 ng/mL (<=0.05)
[2017-04-18 04:36] LABS: BILIRUBIN, DIRECT 0.1 mg/dL (0.0-0.2); BILIRUBIN,INDIRECT 0.4 mg/dL (0.0-0.9); BILIRUBIN,TOTAL 0.5 mg/dL (0.2-2.0); BUN/CREATININE RATIO 17.5; CREATININE SERUM 4.8 mg/dL (0.6-1.4); GLOM FILT RATE Estimated 11.6 mL/min (>60); PLATELET ESTIMATE NORMAL (NORMAL); POTASSIUM 3.8 mmol/L (3.5-5.1); PROTEIN TOTAL SERUM 6.9 g/dL (6.0-8.3)
[2017-04-18 04:37] LABS: RBC NORMAL YES
== END 2017-04-18 12:35 | disposition home or self-care (01) ==
LOC: CED 03:10
PROVIDERS: Emergency Medicine
DX: F15.129 Other stimulant abuse with intoxication, unspecified (principal); R00.0 Tachycardia, unspecified; F17.200 Nicotine dependence, unspecified, uncomplicated; F32.9 Major depressive disorder, single episode, unspecified; N18.9 Chronic kidney disease, unspecified; Z79.899 Other long term (current) drug therapy
CPT/HCPCS: 36415; 71010; 80048; 80076; 82553; 84484; 85025; 85610; 85730; 93005; 96374; 96375; 96376; 99285; J2060